=== PATIENT | male | born 1985 | race Caucasian/White ===

== ENCOUNTER 2024-04-08 14:18 | Emergency (ER) | payer OTHER ==
[~2024-04-08] VITALS: Ht 160 cm; Wt 63.5 kg
[2024-04-08 14:39] VITALS: BP_SYST 121; PULSE 97; RESP 17; TEMP 97.8; O2SAT 96
[2024-04-08 15:22] LABS: BASOPHILS # (AUTO) 0.1 K/uL (0.0-0.2); BASOPHILS % (AUTO) 0.8 % (0.0-2.0); EOSINOPHILS # (AUTO) 0.1 K/uL (0.0-0.4); EOSINOPHILS % (AUTO) 1.3 % (0.0-4.0); HEMATOCRIT 42.7 % (36-54); HEMOGLOBIN 14.9 g/dL (14.0-18.0); LYMPHOCYTES # (AUTO) 1.5 K/uL (1.0-5.5); LYMPHOCYTES % (AUTO) 23.3 % (20.5-51.5); MEAN CORPUSCULAR HEMOGLOBIN 31 pg (27-31); MEAN CORPUSCULAR HGB CONC 35 % (32-36); MEAN CORPUSCULAR VOLUME 89 fL (79.0-98.0); MONOCYTES # (AUTO) 0.4 K/uL (0.0-1.0); MONOCYTES % (AUTO) 6.5 % (1.7-9.3); NEUTROPHILS # (AUTO) 4.3 K/uL (1.8-7.7); NEUTROPHILS % (AUTO) 68.1 % (40.0-70.0); PLATELET COUNT (AUTO) 351 K/uL (130-430); RED BLOOD CELL COUNT(AUTO) 4.81 MIL/uL (4.2-6.2); RED CELL DISTRIBUTION WIDTH 12.6 % (9.0-15.0); WHITE BLOOD COUNT (AUTO) 6.4 K/uL (4.8-10.8)
[2024-04-08 15:47] LABS: PROTHROMBIN TIME 10.8 SECS (9.5-12.5)
[2024-04-08 15:51] LABS: ALANINE AMINOTRANSFERASE 25 U/L (12-78); ALBUMIN 3.8 g/dL (3.4-4.8); ANION GAP 7 (5-15); ASPARTATE AMINOTRANSFERASE 20 U/L (10-37); CALCIUM 8.9 mg/dL (8.4-11.0); CARBON DIOXIDE 28 mmol/L (23-29); CHLORIDE 104 mmol/L (98-107); CREATININE 0.88 mg/dL (0.55-1.30); GFR AFRICAN AMERICAN 123 mL/min (>90); GFR NON AFRICAN-AMERICAN 102 mL/min (>90); GLUCOSE 140 mg/dL (74-106); POTASSIUM 3.8 mmol/L (3.5-5.1); SODIUM SERUM 139 mmol/L (136-145); TOTAL BILIRUBIN 0.3 mg/dL (0.0-1.0); TOTAL PROTEIN, SERUM 7.6 g/dL (6.4-8.3); UREA NITROGEN, BLOOD 8 mg/dL (8-21)
[2024-04-08 15:54] LABS: BILIRUBIN,DIRECT 0.1 mg/dL (0.0-0.3)
[2024-04-08] MEDS ORDERED: ASPI-858 PO (16:11)
[2024-04-08 16:24] VITALS: BP_SYST 121; PULSE 97; RESP 17; TEMP 97.8; O2SAT 96
== END 2024-04-08 16:26 | disposition home or self-care (01) ==
LOC: SED 14:18
DX: I31.9 Disease of pericardium, unspecified (principal); Z79.2 Long term (current) use of antibiotics
CPT/HCPCS: 36415; 71045; 80048; 80076; 84484; 85025; 85610; 85730; 93005; 99285